=== PATIENT | male | born 1965 | race Two or more races ===

== ENCOUNTER → 2023-05-15 | Outpatient (CLI) | payer BC ==
--- NOTE | 2023-05-16 12:01 | CA ---
Transthoracic Echo Report Name: Lew George Age: 57 Gender: M : 1965 Exam Date: 05/15/2023 15:30 Exam Location: [facility] Ht (in): 67 Wt (lb): 160 Ordering Physician: Noemí Koenig DO Attending/Referring Phys: Su Walker Chief Design Engineer Jing Dubose RDCS Procedure CPT: Indications: r06.02 Cardiac Hx: Technical Quality: Fair Contrast 1: Total Dose (mL): Contrast 2: Total Dose (mL): MEASUREMENTS (Male / Female) Normal Values 2D ECHO LV Diastolic Diameter PLAX 4.7 cm 4.2 - 5.9 / 3.9 - 5.3 cm LV Systolic Diameter PLAX 3.0 cm IVS Diastolic Thickness 1.1 cm 0.6 - 1.0 / 0.6 - 0.9 cm LVPW Diastolic Thickness 1.2 cm 0.6 - 1.0 / 0.6 - 0.9 cm LV Relative Wall Thickness 0.5 RV Internal Dim ED PLAX 3.3 cm LA Volume 38.6 cm??? 18 - 58 / 22 - 52 cm??? M-MODE Aortic Root Diameter MM 4.0 cm LA Systolic Diameter MM 3.1 cm LA Ao Ratio MM 0.8 AV Cusp Separation MM 2.1 cm DOPPLER AV Peak Velocity 113.9 cm/s AV Peak Gradient 5.2 mmHg AV Mean Velocity 77.7 cm/s AV Mean Gradient 2.8 mmHg AV Velocity Time Integral 24.0 cm AI Peak Velocity 475.7 cm/s AI Peak Gradient 90.5 mmHg AI Pressure Half Time 1057.6 ms LVOT Peak Velocity 97.0 cm/s LVOT Peak Gradient 3.8 mmHg LVOT Velocity Time Integral 21.9 cm MV Area PHT 4.2 cm??? Mitral E Point Velocity 60.5 cm/s Mitral A Point Velocity 68.2 cm/s Mitral E to A Ratio 0.9 MV Deceleration Time 181.0 ms MV E' Velocity 5.9 cm/s Mitral E to MV E' Ratio 10.3 FINDINGS Left Ventricle Normal left ventricular systolic function with no obvious regional wall motion abnormalities. Left ventricular cavity size normal. Left ventricular wall thickness normal. Normal left ventricular diastolic filling pattern. Left ventricular ejection fraction is estimated at 55-60 %. Right Ventricle Normal right ventricular size and function. Right ventricular systolic pressure within normal limits. Right Atrium Normal right atrial size. Left Atrium Normal left atrial size. Mitral Valve Structurally normal mitral valve. No mitral stenosis, regurgitation or prolapse. Aortic Valve Trileaflet aortic valve. Trace to mild aortic regurgitation. No aortic stenosis. Tricuspid Valve Structurally normal tricuspid valve. Mild tricuspid regurgitation. Pulmonic Valve Structurally normal pulmonic valve. Trace pulmonic regurgitation. Pericardium No pericardial effusion. Aorta Normal size aortic root and proximal ascending aorta. CONCLUSIONS Normal LV systolic function Mild tricuspid regurgitation Previewed by: Dr. Bernardo Lau MD (Electronically Signed) Final Date: 16 May 2023 12:00
== END | disposition home or self-care (01) ==
LOC: RADECHMAIN 15:24
PROVIDERS: ATTEND Family Medicine
DX: I36.1 Nonrheumatic tricuspid (valve) insufficiency (principal)
CPT/HCPCS: 93306